=== PATIENT | male | born 1950 | race Caucasian/White ===

== ENCOUNTER 2022-07-21 10:08 | Outpatient (CLI) | payer OTHER | END 2022-07-21 10:10 | disposition home or self-care (01) | LOC: MRI 10:08 | PROVIDERS: ATTEND Orthopaedic Surgery | DX: S83.201A Bucket-handle tear of unspecified meniscus, current injury, left knee, initial encounter (principal) | CPT/HCPCS: 73721 ==

== ENCOUNTER 2022-08-24 14:24 | Outpatient (CLI) | payer OTHER | END 2022-08-24 14:40 | disposition home or self-care (01) | LOC: MRI 14:24 | PROVIDERS: ATTEND Orthopaedic Surgery | DX: M25.561 Pain in right knee (principal) | CPT/HCPCS: 73721 ==